=== PATIENT | female | born 1950 | race American Indian/Alaskan Native ===

== ENCOUNTER 2017-10-26 10:57 | Day surgery (SDC) | payer MEDICARE ==
[2017-06-07 08:20] VITALS: BMI 31.0
[2017-10-26] MEDS ORDERED: ceFAZolin IV 1 gm in Dextrose 1 GM/50 ML BAG IVPB ONE (15:30)
[2017-10-26] MEDS ORDERED: Lactated Ringer's 1,000 ML IV ONE (15:30)
[2017-10-26] MEDS ORDERED: Midazolam 2 MG/2 ML VIAL ONE (15:36)
[2017-10-26] MEDS ORDERED: Propofol 10 mg/ml Inj (20 ML) ONE (15:36)
[2017-10-26] MEDS ORDERED: Oxycodone/Acetaminophen 5/325 mg Tab PO PRN (16:40)
[2017-10-26] MEDS: HYDROmorphone 0.5 mg/0.5 ml ISec IVP PRN ×3 (16:59→17:45)
[2017-10-26] MEDS ORDERED: HYDROmorphone 0.5 mg/0.5 ml ISec ONE (17:00)
[2017-10-26 18:22] VITALS: RESP 16
[2017-10-26 19:05] VITALS: BP 108/47; PULSE 70; TEMP 97.2; O2SAT 99
--- NOTE | 2017-10-27 07:37 | OP ---
PROCEDURE DATE: 10/26/2017 PREOPERATIVE DIAGNOSES: 1. 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 2. Varicose veins of the left leg. PROCEDURES PERFORMED: 1. Wide and deep excision of hemangioma of the left leg with adjacent tissue transfer closure. 2. Stab phlebectomy of varicose veins of the left leg. SURGEON: Danielito Pelaez MD TYPE OF ANESTHESIA: General. ESTIMATED BLOOD LOSS: 75 mL. POSTOPERATIVE CONDITION: Stable. INDICATIONS FOR SURGERY: This 67-year-old female presents with inflamed varicose veins of the left leg associated with a vascular mass. She will undergo wide and deep excision of the painful mass along with a varicose vein removal. DESCRIPTION OF PROCEDURE: The patient was taken to the operating room. The left leg was prepped and draped after general anesthesia was administered. A generous elliptical incision was made surrounding the mass. It was dissected into the fascial layer and removed. Bleeding was controlled using the Bovie. Larger blood vessels were repaired and generous tissue flaps were raised using the Bovie and adjacent tissue transfer closure was performed with multiple layers of Monocryl, subcuticular Monocryl, and glue. The remaining veins were excised using stab phlebectomy; approximately 10 to 15 incisions were made. Simple closures were performed with 3-0 subcuticular Monocryl. The wounds were dressed sterilely. The patient tolerated the procedure well and returned to recovery room in stable condition. Danielito Pelaez MD
== END 2017-10-26 19:01 | disposition home or self-care (01) ==
LOC: C.SDS 10:57
PROVIDERS: ATTEND Surgery
DX: D48.7 Neoplasm of uncertain behavior of other specified sites (principal); D18.09 Hemangioma of other sites; I83.92 Asymptomatic varicose veins of left lower extremity
CPT/HCPCS: 14020; 27619; 37765; 82948; 88304; J0690; J1170; J2001; J2250; J2405; J2704; J3010; J7120